=== PATIENT | female | born 1945 | race Caucasian/White ===

== ENCOUNTER 2018-08-29 09:55 | Inpatient (IN) | payer BC, OTHER ==
--- NOTE | 2018-08-29 10:33 | PDOC ---
History of Present Illness - General Chief Complaint: Altered Mental Status Stated Complaint: PAIN Time Seen by Provider: 08/29/18 10:22 History Source: Patient Exam Limitations: No Limitations Past History - Past Medical History Allergies/Adverse Reactions: Allergies Allergy/AdvReac Type Severity Reaction Status Date / Time No Known Allergies Allergy Verified 08/29/18 09:56 Home Medications: Ambulatory Orders Levothyroxine Sodium [Synthroid] 112 mcg PO DAILY tablet 01/07/14 COPD: No Thyroid Disease: Yes - Suicide/Smoking/Psychosocial Hx Smoking History: Never smoked *Physical Exam - Vital Signs Last Vital Signs Temp Pulse Resp BP Pulse Ox 98.3 F 76 20 136/73 97 08/29/18 10:03 08/29/18 10:03 08/29/18 10:03 08/29/18 10:03 08/29/18 10:03 Moderate Sedation - Procedure Monitoring Vital Signs: Procedure Monitoring Vital Signs Temperature 98.3 F 08/29/18 10:03 Pulse Rate 76 08/29/18 10:03 Respiratory Rate 20 08/29/18 10:03 Blood Pressure 136/73 08/29/18 10:03 O2 Sat by Pulse Oximetry (%) 97 08/29/18 10:03 *DC/Admit/Observation/Transfer - Referrals Referrals: Mehdi Barrow MD [Primary Care Provider] - - Patient Instructions - Post Discharge Activity
[2018-08-29 11:20] LABS: BASO % 0.3 % (0-2.0); EOS % 0.2 % (0-4.5); HEMATOCRIT 37.2 % (32.4-45.2); HEMOGLOBIN 13.1 GM/dL (10.7-15.3); LYMPH % 32.9 % (8-40); MCH 30.6 pg (25.7-33.7); MCHC 35.2 g/dl (32.0-36.0); MEAN CELL VOLUME 86.9 fl (80-96); MEAN PLT VOLUME 7.6 fl (7.5-11.1); MONO % 8.9 % (3.8-10.2); NEUT % 57.7 % (42.8-82.8); PLATELET COUNT 249 K/MM3 (134-434); RBC 4.28 M/mm3 (3.60-5.2); RDW 12.4 % (11.6-15.6)
--- NOTE | 2018-08-29 11:25 | PDOC ---
History of Present Illness <Elia Childers - Last Filed: 08/29/18 13:14> - General History Source: Patient, Family Exam Limitations: No Limitations - History of Present Illness Initial Comments: 08/29/18 11:25 73 year old female c/ hx of thyroid disorder presents with altered mental status. ~2 weeks ago, pt was /o cough. Saw Dr. Barrow (her PMD) and was worked up as an outpatient. Started on empiric amoxicillin and completed dose of antibiotics. Ultimately found out that this was some sort of "virus" Cough improved. However, pt's daughter started to note in the last days that she was becoming increasingly more confusion. Was however being recently treated for an ear infection. Currently, patient has no pain, but does seem confused. Does state she has a frontal headache and some neck discomfort. Had a fever yesterday but no fever today. No recent travels. Because of the confusion, pt came to the ED for an evaluation. <Gerard Mckenzie - Last Filed: 08/29/18 15:15> - General Chief Complaint: Altered Mental Status Stated Complaint: PAIN Time Seen by Provider: 08/29/18 10:22 Past History <Elia Childers - Last Filed: 08/29/18 13:14> - Past Medical History COPD: No Thyroid Disease: Yes - Suicide/Smoking/Psychosocial Hx Smoking History: Never smoked <Gerard Mckenzie - Last Filed: 08/29/18 15:15> - Past Medical History Allergies/Adverse Reactions: Allergies Allergy/AdvReac Type Severity Reaction Status Date / Time No Known Allergies Allergy Verified 08/29/18 09:56 Home Medications: Ambulatory Orders Levothyroxine Sodium [Synthroid] 112 mcg PO DAILY tablet 01/07/14 Review of Systems - Review of Systems Comments:: 08/29/18 13:14 GENERAL/CONSTITUTIONAL: (+) Confusion. (+) Fever (Resolved). No chills. No weakness. HEAD, EYES, EARS, NOSE AND THROAT: No change in vision. No ear pain or discharge. No sore throat. CARDIOVASCULAR: No chest pain or shortness of breath. RESPIRATORY: No cough, wheezing, or hemoptysis. GASTROINTESTINAL: No nausea, vomiting, diarrhea or constipation. GENITOURINARY: No dysuria, frequency, or change in urination. MUSCULOSKELETAL: (+) Mild neck discomfort. No joint or muscle swelling or pain. No back pain. SKIN: No rash NEUROLOGIC: (+) Frontal headache. No vertigo, loss of consciousness, or change in strength/sensation. ENDOCRINE: No increased thirst. No abnormal weight change. HEMATOLOGIC/LYMPHATIC: No anemia, easy bleeding, or history of blood clots. ALLERGIC/IMMUNOLOGIC: No hives or skin allergy. <Elia Childers - Last Filed: 08/29/18 13:14> *Physical Exam - Vital Signs Last Vital Signs Temp Pulse Resp BP Pulse Ox 98.3 F 76 20 136/73 97 08/29/18 10:03 08/29/18 10:03 08/29/18 10:03 08/29/18 10:03 08/29/18 10:03 - Physical Exam Comments: 08/29/18 13:14 GENERAL: Alert and oriented x 3. (+) Appears generally confused. HEAD: No signs of trauma EYES: PERRLA, EOMI, sclera anicteric, conjunctiva clear ENT: Auricles normal inspection, hearing grossly normal, nares patent, oropharynx clear without exudates. Moist mucosa NECK: Normal ROM, supple, no lymphadenopathy, JVD, or masses LUNGS: Breath sounds equal, clear to auscultation bilaterally. No wheezes, and no crackles HEART: Regular rate and rhythm, normal S1 and S2, no murmurs, rubs or gallops ABDOMEN: Soft, nontender, normoactive bowel sounds. No guarding, no rebound. No masses EXTREMITIES: Normal range of motion, no edema. No clubbing or cyanosis. No cords, erythema, or tenderness NEUROLOGICAL: Cranial nerves II through XII grossly intact. Normal speech. SKIN: Warm, Dry, normal turgor, no rashes or lesions noted. <Elia Childers - Last Filed: 08/29/18 13:14> - Vital Signs Last Vital Signs Temp Pulse Resp BP Pulse Ox 98.3 F 76 20 136/73 97 08/29/18 10:03 08/29/18 10:03 08/29/18 10:03 08/29/18 10:03 08/29/18 10:03 <Gerard Mckenzie - Last Filed: 08/29/18 15:15> Moderate Sedation - Procedure Monitoring Vital Signs: Procedure Monitoring Vital Signs Temperature 98.3 F 08/29/18 10:03 Pulse Rate 76 08/29/18 10:03 Respiratory Rate 20 08/29/18 10:03 Blood Pressure 136/73 08/29/18 10:03 O2 Sat by Pulse Oximetry (%) 97 08/29/18 10:03 <Elia Childers - Last Filed: 08/29/18 13:14> - Procedure Monitoring Vital Signs: Procedure Monitoring Vital Signs Temperature 98.3 F 08/29/18 10:03 Pulse Rate 76 08/29/18 10:03 Respiratory Rate 20 08/29/18 10:03 Blood Pressure 136/73 08/29/18 10:03 O2 Sat by Pulse Oximetry (%) 97 08/29/18 10:03 <Gerard Mckenzie - Last Filed: 08/29/18 15:15> Heart Score/ECG Review #1 ECG reviewed & interpreted by me at: 11:00 08/29/18 11:25 NSR 59, no std/deirdre, normal axis, normal intervals, T wave flat aVF, QTC 433 msec <Gerard Mckenzie - Last Filed: 08/29/18 15:15> ED Treatment Course - LABORATORY CBC & Chemistry Diagram: 08/29/18 11:04 08/29/18 10:48 - ADDITIONAL ORDERS Additional order review: Laboratory Results 08/29/18 08/29/18 08/29/18 11:34 11:13 11:04 PT with INR 11.20 INR 0.95 PTT (Actin FS) 24.6 L Sodium Potassium Chloride Carbon Dioxide Anion Gap BUN Creatinine Creat Clearance w eGFR Random Glucose Lactic Acid 1.5 Calcium Phosphorus Magnesium Total Bilirubin AST ALT Alkaline Phosphatase Troponin I Total Protein Albumin TSH Urine Color Ltyellow Urine Appearance Clear Urine pH 7.0 Ur Specific [place] 1.006 L Urine Protein Negative Urine Glucose (UA) Negative Urine Ketones Negative Urine Blood Negative Urine Nitrite Negative Urine Bilirubin Negative Urine Urobilinogen Negative Ur Leukocyte Esterase Negative 08/29/18 10:48 PT with INR INR PTT (Actin FS) Sodium 139 Potassium 3.4 L Chloride 104 Carbon Dioxide 26 Anion Gap 9 BUN 7 Creatinine 0.6 Creat Clearance w eGFR > 60 Random Glucose 100 Lactic Acid Calcium 8.8 Phosphorus 1.9 L Magnesium 2.2 Total Bilirubin 0.5 AST 24 ALT 37 Alkaline Phosphatase 65 Troponin I < 0.02 Total Protein 6.2 L Albumin 3.6 TSH 0.44 Urine Color Urine Appearance Urine pH Ur Specific [place] Urine Protein Urine Glucose (UA) Urine Ketones Urine Blood Urine Nitrite Urine Bilirubin Urine Urobilinogen Ur Leukocyte Esterase 08/29/18 11:04 RBC 4.28 MCV 86.9 MCHC 35.2 RDW 12.4 MPV 7.6 Neutrophils % 57.7 Lymphocytes % 32.9 Monocytes % 8.9 Eosinophils % 0.2 Basophils % 0.3 <Elia Childers - Last Filed: 08/29/18 13:14> - LABORATORY CBC & Chemistry Diagram: 08/29/18 11:04 08/29/18 10:48 - RADIOLOGY Radiology Studies Ordered: Category Date Time Status HEAD CT WITHOUT CONTRAST [CT] Stat CT Scan 08/29/18 10:48 Ordered CHEST X-RAY PORTABLE* [RAD] Stat Radiology 08/29/18 10:48 Taken <Gerard Mckenzie - Last Filed: 08/29/18 15:15> Medical Decision Making - Medical Decision Making 08/29/18 12:24 A portion of this note was documented by scribe services under my direction. I have reviewed the details of the note, within reason, and agree with the documentation with the following case summary and management plan written by me. Patient treated in the ED. Nursing notes are reviewed and incorporated into the medical decision-making. Vital signs reviewed. Peripheral IV access obtained by the nurse, laboratory studies are drawn and sent, reviewed and interpreted by myself. Vital Signs Temp Pulse Resp BP Pulse Ox 98.3 F 76 20 136/73 97 08/29/18 10:03 08/29/18 10:03 08/29/18 10:03 08/29/18 10:03 08/29/18 10:03 73 year old female presents with confusion. The patient appears to be delirious but alert. As per pt's daughter, pt is typically very alert and highly functional and still works at a job, but seems more confused than usual. I have spoken with pt's PMD, Dr. Barrow. Pt had outpatient labs performed and had WBC ~2.5. Was thought that could've been potentially viral. Labs reviewed with no acute findings. However, I am concerned for delirium secondary to possible viral meningitis. I agree with plan to do head CT and will talk with daughter and patient about performing a lumbar puncture. Pt and pt's daughter seems hesitatant and will get back to us. Will ultimately need to admit the patient to the hospital. 08/29/18 15:14 CBC, BMP 08/29/18 11:04 08/29/18 10:48 CMP Sodium 139 mmol/L (136-145) 08/29/18 10:48 Potassium 3.4 mmol/L (3.5-5.1) L 08/29/18 10:48 Chloride 104 mmol/L (98-107) 08/29/18 10:48 Carbon Dioxide 26 mmol/L (21-32) 08/29/18 10:48 Anion Gap 9 MMOL/L (8-16) 08/29/18 10:48 BUN 7 mg/dL (7-18) 08/29/18 10:48 Creatinine 0.6 mg/dL (0.55-1.3) 08/29/18 10:48 Creat Clearance w eGFR > 60 (>60) 08/29/18 10:48 Random Glucose 100 mg/dL (74-106) 08/29/18 10:48 Lactic Acid 1.5 mmol/L (0.4-2.0) 08/29/18 11:04 Calcium 8.8 mg/dL (8.5-10.1) 08/29/18 10:48 Phosphorus 1.9 mg/dL (2.5-4.9) L 08/29/18 10:48 Magnesium 2.2 mg/dL (1.8-2.4) 08/29/18 10:48 Total Bilirubin 0.5 mg/dL (0.2-1) 08/29/18 10:48 AST 24 U/L (15-37) 08/29/18 10:48 ALT 37 U/L (13-61) 08/29/18 10:48 Alkaline Phosphatase 65 U/L (45-117) 08/29/18 10:48 Troponin I < 0.02 ng/ml (0.00-0.05) 08/29/18 10:48 Total Protein 6.2 g/dl (6.4-8.2) L 08/29/18 10:48 Albumin 3.6 g/dl (3.4-5.0) 08/29/18 10:48 TSH 0.44 uIU/ml (0.358-3.74) 08/29/18 10:48 Urine Test Results Urine Color Ltyellow 08/29/18 11:34 Urine Appearance Clear 08/29/18 11:34 Urine pH 7.0 (5.0-8.0) 08/29/18 11:34 Ur Specific [place] 1.006 (1.010-1.035) L 08/29/18 11:34 Urine Protein Negative (NEGATIVE) 08/29/18 11:34 Urine Glucose (UA) Negative (NEGATIVE) 08/29/18 11:34 Urine Ketones Negative (NEGATIVE) 08/29/18 11:34 Urine Blood Negative (NEGATIVE) 08/29/18 11:34 Urine Nitrite Negative (NEGATIVE) 08/29/18 11:34 Urine Bilirubin Negative (<2.0 mg/dL) 08/29/18 11:34 Ur Leukocyte Esterase Negative (NEGATIVE) 08/29/18 11:34 Labs unremarkable. Pt and pt's daughter consents for lumbar puncture. Lumbar puncture attempted under sterile conditions by me and Dr. Don. Unsuccessful attempt. Pt will likely need IR guided lumbar puncture. Case discussed with Dr. Hollis. Initiate IV acyclor and IV antibiotics (vanc/ceftriaxone). Case discussed with DR. Leavitt who accepts pt to med/surg admission. <Gerard Mckenzie - Last Filed: 08/29/18 15:15> *DC/Admit/Observation/Transfer - Attestations Scribe Attestion: 08/29/18 13:15 Documentation prepared by Elia Childers, acting as medical data analyst for Gerard Mckenzie MD. <Elia Childers - Last Filed: 08/29/18 13:14> <Gerard Mckenzie - Last Filed: 08/29/18 15:15> Diagnosis at time of Disposition: Altered mental status - Referrals Referrals: Mehdi Barrow MD [Primary Care Provider] - - Patient Instructions - Post Discharge Activity
--- NOTE | 2018-08-29 11:32 | PDOC ---
*Physical Exam - Vital Signs Last Vital Signs Temp Pulse Resp BP Pulse Ox 98.3 F 76 20 136/73 97 08/29/18 10:03 08/29/18 10:03 08/29/18 10:03 08/29/18 10:03 08/29/18 10:03 - Physical Exam Comments: 73 yo F with a hx of hypothyroidism presents to the emergency department with AMS. Per the patient, had URI 2 weeks ago and given amoxicillin by PMD. Over the past 2 days, she became increasingly confused per the daughter. Per the patient, she had a fever yesterday. General Appearance: Yes: Nourished, Appropriately Dressed. No: Apparent Distress, Intoxicated HEENT: positive: EOMI, DASHAWN, Normal ENT Inspection, Normal Voice, Symmetrical, TMs Normal, Pharynx Normal, Hearing Grossly Normal. negative: Pale Conjunctivae , Scleral Icterus (R), Scleral Icterus (L), Muffled/Hoarse voice, Pharyngeal Erythema, Tonsillar Exudate, Tonsillar Erythema, Nasal Congestion, Rhinorrhea, Excessive drooling Neck: positive: Trachea midline, Supple. negative: Tender, Lymphadenopathy (R) , Lymphadenopathy (L), Tender lateral, Tender midline Respiratory/Chest: positive: Lungs Clear, Normal Breath Sounds. negative: Chest Tender, Respiratory Distress, Accessory Muscle Use, Crackles, Rales, Rhonchi, Stridor Cardiovascular: positive: Regular Rhythm, Regular Rate, S1, S2. negative: Systolic Murmur Gastrointestinal/Abdominal: positive: Normal Bowel Sounds. negative: Tender Lymphatic: negative: Adenopathy Musculoskeletal: positive: Normal Inspection. negative: CVA Tenderness, Vertebral Tenderness Extremity: positive: Normal Capillary Refill, Normal Inspection, Normal Range of Motion. negative: Tender, Swelling, Calf Tenderness Integumentary: positive: Normal Color, Dry, Warm Neurologic: positive: technical documentation specialist II-XII NML intact, Fully Oriented, Alert, Normal Mood/ Affect, Normal Response, Motor Strength 5/5, Other (GENERAL CONFUSION) ED Treatment Course - LABORATORY CBC & Chemistry Diagram: 08/30/18 06:30 08/30/18 06:30 - ADDITIONAL ORDERS Additional order review: 08/29/18 11:04 RBC 4.28 MCV 86.9 MCHC 35.2 RDW 12.4 MPV 7.6 Neutrophils % 57.7 Lymphocytes % 32.9 Monocytes % 8.9 Eosinophils % 0.2 Basophils % 0.3 Medical Decision Making - Medical Decision Making head ct shows no acute process. cxr negative for acute process. Laboratory Tests 08/29/18 08/29/18 08/29/18 10:48 11:04 11:04 WBC 4.0 RBC 4.28 Hgb 13.1 Hct 37.2 MCV 86.9 MCH 30.6 MCHC 35.2 RDW 12.4 Plt Count 249 MPV 7.6 Absolute Neuts (auto) 2.3 Neutrophils % 57.7 Lymphocytes % 32.9 Monocytes % 8.9 Eosinophils % 0.2 Basophils % 0.3 Nucleated RBC % 0 PT with INR INR PTT (Actin FS) Sodium 139 Potassium 3.4 L Chloride 104 Carbon Dioxide 26 Anion Gap 9 BUN 7 Creatinine 0.6 Creat Clearance w eGFR > 60 Random Glucose 100 Lactic Acid Calcium 8.8 Phosphorus 1.9 L Magnesium 2.2 Total Bilirubin 0.5 AST 24 ALT 37 Alkaline Phosphatase 65 Troponin I < 0.02 Total Protein 6.2 L Albumin 3.6 TSH 0.44 Urine Color Urine Appearance Urine pH Ur Specific [place] Urine Protein Urine Glucose (UA) Urine Ketones Urine Blood Urine Nitrite Urine Bilirubin Urine Urobilinogen Ur Leukocyte Esterase Influenza A (Rapid) Negative Influenza B (Rapid) Negative 08/29/18 08/29/18 08/29/18 11:04 11:13 11:34 WBC RBC Hgb Hct MCV MCH MCHC RDW Plt Count MPV Absolute Neuts (auto) Neutrophils % Lymphocytes % Monocytes % Eosinophils % Basophils % Nucleated RBC % PT with INR 11.20 INR 0.95 PTT (Actin FS) 24.6 L Sodium Potassium Chloride Carbon Dioxide Anion Gap BUN Creatinine Creat Clearance w eGFR Random Glucose Lactic Acid 1.5 Calcium Phosphorus Magnesium Total Bilirubin AST ALT Alkaline Phosphatase Troponin I Total Protein Albumin TSH Urine Color Ltyellow Urine Appearance Clear Urine pH 7.0 Ur Specific [place] 1.006 L Urine Protein Negative Urine Glucose (UA) Negative Urine Ketones Negative Urine Blood Negative Urine Nitrite Negative Urine Bilirubin Negative Urine Urobilinogen Negative Ur Leukocyte Esterase Negative Influenza A (Rapid) Influenza B (Rapid) labs within normal limits. patient continues to have AMS. refer to Lumbar puncture note on procedure. unable to collect CSF samples. Spoke to Dr. Suárez who states he will start the patient on antiviral and abx for meningitis coverage until the LP is done. Will admit patient for AMS. Dr. Leavitt aware of the patient. Dispo; admit *DC/Admit/Observation/Transfer Diagnosis at time of Disposition: Altered mental status Qualifiers: Altered mental status type: unspecified Qualified Code(s): R41.82 - Altered mental status, unspecified - Referrals - Patient Instructions - Post Discharge Activity Lumbar Puncture Indication: AMS Risks and Benefits Explained: Yes Consent on Chart: Yes Sterile Technique: Yes Skin prep: Betadine Position: Left lateral decubitus Site: L4-L51 Local Anesthesia: 1% Lidocaine with epi Sterile Dressing Applied: Yes Remarks: unable to acquire CSF. needle unable to penetrate into space. likely due to degenerative joint disease narrowing disc space. will refer to IR for procedure to be done under imaging guidance.
[2018-08-29 11:58] LABS: ALBUMIN 3.6 g/dl (3.4-5.0); ALK PHOS 65 U/L (45-117); ANION GAP 9 MMOL/L (8-16); BILIRUBIN,TOTAL 0.5 mg/dL (0.2-1); BLOOD UREA NITROGEN 7 mg/dL (7-18); CALCIUM 8.8 mg/dL (8.5-10.1); CHLORIDE 104 mmol/L (98-107); CO2 26 mmol/L (21-32); CREATININE 0.6 mg/dL (0.55-1.3); GLUCOSE,RANDOM 100 mg/dL (74-106); MAGNESIUM 2.2 mg/dL (1.8-2.4); PHOSPHOROUS 1.9 mg/dL (2.5-4.9); POTASSIUM 3.4 mmol/L (3.5-5.1); SGOT/AST 24 U/L (15-37); SGPT/ALT 37 U/L (13-61); SODIUM 139 mmol/L (136-145); TOT PROT 6.2 g/dl (6.4-8.2)
[2018-08-29 12:13] LABS: URINE APPEARANCE CLEAR; URINE BILIRUBIN NEGATIVE (<2.0 mg/dL); URINE COLOR LTYELLOW; URINE GLUCOSE (UA) NEGATIVE (NEGATIVE); URINE KETONE NEGATIVE (NEGATIVE); URINE LEUK ESTERASE NEGATIVE (NEGATIVE); URINE NITRITE NEGATIVE (NEGATIVE); URINE PROTEIN NEGATIVE (NEGATIVE); URINE UROBILINOGEN NEGATIVE mg/dL (0.2-1.0)
[2018-08-29 12:47] LABS: INR 0.95 (0.83-1.09); PROTHROMBIN TIME (PATIENT) 11.2 SEC (9.7-13.0)
[2018-08-29 12:50] LABS: ACTIVATED PTT 24.6 SECONDS (25.2-36.5)
[2018-08-29] MEDS ORDERED: LIDOCAINE HCL 1%, 10 MG/ML (20ML VIAL) ONE (14:44)
[2018-08-29] MEDS ORDERED: ACETAMINOPHEN 1000 MG/100 ML VIAL (NON FORMULARY) IVPB ONE (15:12)
[2018-08-29] MEDS ORDERED: SODIUM CHLORIDE 1,000 ML IV STA (15:12)
[2018-08-29] MEDS ORDERED: POTASSIUM CHLORIDE TABS 20 MEQ TABLET.ER (FP) PO ONE (15:13)
--- NOTE | 2018-08-29 15:17 | HP ---
Admitting History and Physical - Primary Care Physician PCP: Mehdi Barrow - Admission Chief Complaint: came in for headache History of Present Illness: 73 yr old female h/o thyroid surgery came in for headache feeling tired and neck pain patient completed course of abx amoxicillin about two weeks ago for cough, patient had labs done at PMD and wbc 2.5 no fever, no chills no nausea no vomitting in ER Lumbar puncture was attempted but unsuccessful neurology on board iv abx History Source: Patient, Medical Record - Past Surgical History Additional Past Surgical History: thyroid surgery - Smoking History Smoking history: Never smoked Home Medications - Allergies Allergies/Adverse Reactions: Allergies Allergy/AdvReac Type Severity Reaction Status Date / Time No Known Allergies Allergy Verified 08/29/18 09:56 - Home Medications Home Medications: Ambulatory Orders Levothyroxine Sodium [Synthroid] 112 mcg PO DAILY tablet 01/07/14 Review of Systems - Review of Systems Constitutional: reports: Other (headache and neck pain feelingtired) Physical Examination Vital Signs: Vital Signs Temperature 98.3 F 08/29/18 10:03 Pulse Rate 76 08/29/18 10:03 Respiratory Rate 20 08/29/18 10:03 Blood Pressure 136/73 08/29/18 10:03 O2 Sat by Pulse Oximetry (%) 97 08/29/18 10:03 Constitutional: Yes: Calm Cardiovascular: Yes: Regular Rate and Rhythm, S1, S2 Respiratory: Yes: CTA Bilaterally Gastrointestinal: Yes: Normal Bowel Sounds, Soft Neurological: Yes: Alert, Oriented (to name) Labs: CBC, BMP 08/29/18 11:04 08/29/18 10:48 Imaging - Results Cat Scan: Report Reviewed Problem List - Problems (1) Altered mental status Assessment/Plan: med surg cultures neurology consult IR guided Lumbar puncture ID eval broad abx vanco and rocephin iv acyclovir dvt ppx neurochecks Code(s): R41.82 - ALTERED MENTAL STATUS, UNSPECIFIED Qualifiers: Altered mental status type: unspecified Qualified Code(s): R41.82 - Altered mental status, unspecified (2) Hypothyroid Assessment/Plan: tsh synthroid Code(s): E03.9 - HYPOTHYROIDISM, UNSPECIFIED (3) Electrolyte abnormality Assessment/Plan: replete phosphorous and potassium Code(s): E87.8 - OTH DISORDERS OF ELECTROLYTE AND FLUID BALANCE, NEC
[2018-08-29] MEDS ORDERED: ACYCLOVIR 500 MG (50MG/ML) VIAL IVPUSH ONE (16:18)
[2018-08-29] MEDS ORDERED: CEFTRIAXONE 1 GM/50 ML BAG ONE (16:20)
[2018-08-29] MEDS ORDERED: ACETAMINOPHEN INJECTION 100 ML IVPB ONE (16:20)
[2018-08-29] MEDS ORDERED: VANCOMYCIN 1 GRAM (PRE-DOCKED) 1,000 MG/250 ML BAG IVPB ONE (16:30)
[2018-08-29] MEDS ORDERED: ACYCLOVIR INJECTION 700 MG in DEXTROSE 5%-WATER - 100 ML IVPB ONE (16:45)
[2018-08-29] MEDS ORDERED: CEFTRIAXONE 1 GM in DEXTROSE 5%-WATER - 50 ML IVPB ONE (16:45)
[2018-08-29] MEDS ORDERED: NAPH,MB-DB/K PH,MBDB POWDER PACKET PO ONE (16:45)
--- NOTE | 2018-08-29 17:09 | PN ---
Progress Note (short form) - Note Progress Note: ID CONSULT DICTATED
[2018-08-29] MEDS ORDERED: VANCOMYCIN 1 GRAM (PRE-DOCKED) 1,000 MG/250 ML BAG IVPB SCH (18:00)
[2018-08-29] MEDS: CEFTRIAXONE 2 GM in DEXTROSE 5%-WATER 100 ML IVPB SCH ×3 (18:00→22:44)
--- NOTE | 2018-08-29 18:13 | CONS ---
DATE OF CONSULTATION: DATE OF DICTATION: 08/29/2018 HISTORY: The patient is a 73-year-old female evaluated for possible meningitis. History was obtained from the chart as well as the patient's daughter who was present at the time of the examination. She was doing well until approximately 2 weeks prior to admission. She had developed an upper respiratory tract infection characterized by cough. She saw her primary care doctor as an outpatient and was prescribed amoxicillin. Her cough resolved, and she initially improved; however, over the past 2-3 days, the daughter reports that she has become increasingly confused. 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 She was increasingly confused and forgetful. She was brought to the emergency room where a CAT scan of the head was performed and was negative for acute infarct or bleed. Daughter was concerned that her mother might have been having a stroke. In the emergency room, she was noticeably confused. She complained of a frontal headache and some neck pain. A lumbar puncture was attempted, however, unsuccessful. At the present time, she is awake; however, she appears confused. She is in no acute distress and is not acutely toxic appearing. No reports of fever or chills. No chest pain, shortness of breath, vomiting, or diarrhea. No rash has been reported. Daughter states that she may have been in contact with persons with respiratory therapy illnesses at work. She has had no recent hospitalization. No recent travel. No known insect or animal bites or scratches. PAST MEDICAL HISTORY: Positive for thyroid disease. ALLERGIES: No known allergies. MEDICATIONS: Synthroid. SOCIAL HISTORY: She works in an office doing office work. Nonsmoker, nondrinker. No history of illicit drugs. SYSTEMS REVIEW: Neurologic: As per HPI. Cardiac: Negative chest pain or palpitations. Respiratory: Negative cough or sputum production. Gastrointestinal: Negative vomiting or diarrhea. Genitourinary: Negative for urinary tract infection. LABORATORY DATA: White count 4 with 57 neutrophils, 32 lymphocytes, 8 monocytes, hematocrit 37.2, platelets 249. Influenza swab negative. Urinalysis negative. Blood and urine cultures pending. Chest x-ray negative for acute infiltrate. PHYSICAL EXAMINATION: General: She is awake. She is seated on the stretcher in the emergency room. Vital Signs: Temperature 98.3, blood pressure 136/73, pulse 76 and regular, respirations 20 per minute. HEENT: Sclerae anicteric. Oropharynx slightly injected. No exudate. Tympanic membranes clear bilaterally. Neck: Supple. No nuchal rigidity or tenderness to flexion. Heart: Sounds S1, S2. Lungs: Clear bilaterally. Abdomen: Soft. No tenderness elicited. No mass, rebound, or rigidity. Extremities: Positive for edema. Negative Homans sign. No rash is noted. IMPRESSION: 1. Altered mental status, rule out toxic metabolic encephalopathy. 2. Rule out central nervous system infection. 3. Recent respiratory tract illness. PLAN: Suspect viral syndrome with possible viral encephalitis in light of recent respiratory tract illness and reports of leukopenia prior to admission. Agree with lumbar puncture. Will empirically treat for meningitis with ceftriaxone 2 g IV piggyback every 12 hours, vancomycin 1 g IV piggyback every 12 hours, acyclovir 10 mg/kg IV piggyback every 8 hours. Neurology evaluation. Case discussed with primary care doctor as well as the daughter, who is present at the time of the examination. I will follow. Thank you for the kind referral. AL VEGA M.D. [id number]
[2018-08-29] MEDS: ACYCLOVIR INJECTION 700 MG in DEXTROSE 5%-WATER - 100 ML IVPB SCH (18:25)
--- NOTE | 2018-08-29 18:25 | CON.NEURO ---
Consult - Smoking History Smoking history: Never smoked Home Medications - Allergies Allergies/Adverse Reactions: Allergies Allergy/AdvReac Type Severity Reaction Status Date / Time No Known Allergies Allergy Verified 08/29/18 09:56 - Home Medications Home Medications: Ambulatory Orders Levothyroxine Sodium [Synthroid] 112 mcg PO DAILY tablet 01/07/14 Physical Exam-Neuro Vital Signs: Vital Signs Temperature 98.3 F 08/29/18 10:03 Pulse Rate 76 08/29/18 10:03 Respiratory Rate 20 08/29/18 10:03 Blood Pressure 136/73 08/29/18 10:03 O2 Sat by Pulse Oximetry (%) 97 08/29/18 10:03 Labs: CBC, BMP 08/29/18 11:04 08/29/18 10:48 INR, PTT INR 0.95 (0.83-1.09) 08/29/18 11:13 Assessment/Plan CC Confusion and recent viral illness HPI 73 year old female , no significant medical illness except hypothyroidism. 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 She denies any cognitive difficulty, no alcohol abuse, no stroke or depression. She has suffered recent flu and was given steroid and amoxycillin. Patient was forgetting things. there was no agitation or seizure , or significant headache. She has not had any high grade fever. Ed try to do spinal tap and could not do and she was started on abx empirically. PMH as Above PSH: Thyroid surgery Social History work as office secretary, lives with son and denies toxic habits. - Allergies/Adverse Reactions: Allergies Allergy/AdvReac Type Severity Reaction Status Date / Time No Known Allergies Allergy Verified 08/29/18 09:56 Home Medications: Levothyroxine Sodium [Synthroid] 112 mcg PO DAILY tablet 01/07/14 FH,ROS reviewed in chart NEUROLOGICAL EXAMINATION afebrile, no acute distress Alert and oriented x 3, no neck stiffness, following command eomi, pupils reactive, no face asymmetry, moving all ext sensation is normal ct head was unremarkable csf could not be obtained Assessment: 73 year old female history of Hypothyrodism, given recent viral illness and acute confusional state, possible viral encephalitis / meningitis cant be rule out. Clinically suspician for meningitis / encephalitis is not very strong. other possibility ? tia /stroke Plan: suggest to do mri of brain continue abx and antiviral medication and csf BY IR Continue supportive care Thanking you so much Juan Hollis MD
--- NOTE | 2018-08-29 20:21 | PN ---
Progress Note (short form) - Note Progress Note: Advised by nurse to act on this patient because seen by neurologist and there is possible diagnosis of meningitis low probability all the chart reviewed and she is afibrile at this time. vs stable ap since the possibility of meningitis low chance according to neurologist plan continue same treatment will move this patient to isolation till patient has lumbar puncture Visit type - Emergency Visit Emergency Visit: No - New Patient This patient is new to me today: Yes Date on this admission: 08/29/18 - Critical Care Critical Care patient: No - Discharge Referral Referred to [facility] Med P.C[facility] No
[2018-08-29] MEDS ORDERED: DEXTROSE 5%-WATER 100 ML IVPB ONE (22:37)
[2018-08-29] MEDS: ACETAMINOPHEN 325 MG TABLET (FP) PO PRN (23:48)
[2018-08-30 00:51] VITALS: BMI 29.4
[2018-08-30] MEDS: ACYCLOVIR INJECTION 700 MG in DEXTROSE 5%-WATER - 100 ML IVPB SCH ×3 (02:17→17:36)
[2018-08-30] MEDS ORDERED: ACETAMINOPHEN 325 MG TABLET (FP) PO ONE (04:08)
[2018-08-30] MEDS: LEVOTHYROXINE NA 125 MCG TABLET (FP) PO SCH (06:37)
[2018-08-30 07:47] LABS: HEMATOCRIT 35.5 % (32.4-45.2); HEMOGLOBIN 12.2 GM/dL (10.7-15.3); MCH 30.1 pg (25.7-33.7); MCHC 34.4 g/dl (32.0-36.0); MEAN CELL VOLUME 87.3 fl (80-96); MEAN PLT VOLUME 7.6 fl (7.5-11.1); PLATELET COUNT 259 K/MM3 (134-434); RBC 4.07 M/mm3 (3.60-5.2); RDW 12.5 % (11.6-15.6)
[2018-08-30 08:01] LABS: ALBUMIN 3.1 g/dl (3.4-5.0); ALK PHOS 60 U/L (45-117); ANION GAP 7 MMOL/L (8-16); BILIRUBIN,TOTAL 0.4 mg/dL (0.2-1); BLOOD UREA NITROGEN 8 mg/dL (7-18); CALCIUM 8.1 mg/dL (8.5-10.1); CHLORIDE 107 mmol/L (98-107); CO2 25 mmol/L (21-32); CREATININE 0.8 mg/dL (0.55-1.3); GLUCOSE,RANDOM 105 mg/dL (74-106); MAGNESIUM 2.2 mg/dL (1.8-2.4); PHOSPHOROUS 3.2 mg/dL (2.5-4.9); POTASSIUM 3.6 mmol/L (3.5-5.1); SGOT/AST 21 U/L (15-37); SGPT/ALT 28 U/L (13-61); SODIUM 139 mmol/L (136-145); TOT PROT 5.6 g/dl (6.4-8.2)
--- NOTE | 2018-08-30 10:02 | PN ---
Progress Note, Physician History of Present Illness: AWAKE, ALERT ORIENTED X 3 ANSWERS APPROPRIATELY APPEARS TO BE BACK TO BASELINE MENTATION AFEBRILE C/S PRELIM NO GROWTH - Current Medication List Current Medications: Active Medications Acetaminophen (Tylenol -) 650 mg PO Q6HPO PRN PRN Reason: FEVER Last Admin: 08/29/18 23:48 Dose: 650 mg Ceftriaxone Sodium 2 gm/ (Dextrose) 100 mls @ 100 mls/hr IVPB BID ESTHER; Protocol Last Admin: 08/29/18 22:44 Dose: 100 mls/hr Acyclovir 700 mg/ Dextrose 114 mls @ 114 mls/hr IVPB Q8H-IV ESTHER Last Admin: 08/30/18 02:17 Dose: 114 mls/hr Vancomycin HCl (Vancomycin (Pre-Docked)) 1,000 mg in 250 mls @ 166.667 mls/hr IVPB BID@1100,2300 ESTHER; Protocol Levothyroxine Sodium (Synthroid -) 125 mcg PO DAILY@0600 ESTHER Last Admin: 08/30/18 06:37 Dose: 125 mcg - Objective Vital Signs: Vital Signs Temperature 99.3 F 08/30/18 06:00 Pulse Rate 74 08/30/18 06:00 Respiratory Rate 18 08/30/18 06:00 Blood Pressure 127/72 08/30/18 06:00 O2 Sat by Pulse Oximetry (%) 98 08/30/18 00:45 Constitutional: Yes: No Distress Eyes: Yes: Conjunctiva Clear Neck: Yes: Supple Cardiovascular: Yes: Regular Rate and Rhythm, S1, S2 Respiratory: Yes: CTA Bilaterally Gastrointestinal: Yes: Normal Bowel Sounds, Soft. No: Tenderness Edema: No Labs: CBC, BMP 08/30/18 06:30 08/30/18 06:30 INR, PTT INR 0.95 (0.83-1.09) 08/29/18 11:13 Assessment/Plan ALTERED MENTAL STATUS ? TOXIC METABOLIC ENCEPHALOPATHY IMPROVED NO CLINICAL EVIDENCE OF MENINGITS AFEBRILE C/S NO GROWTH FOR MRI D/C ANTIBIOTICS D/C ISOLATION CONTINUE ACV PENDING MRI
[2018-08-30] MEDS: ACETAMINOPHEN 325 MG TABLET (FP) PO PRN ×2 (10:15→23:46)
[2018-08-30] MEDS ORDERED: VANCOMYCIN 1 GRAM (PRE-DOCKED) 1,000 MG/250 ML BAG IVPB SCH (11:00)
[2018-08-30] MEDS ORDERED: PT OWN MED DRAWER 7, Y5N ONE (11:55)
[2018-08-30] MEDS: CEFTRIAXONE 2 GM in DEXTROSE 5%-WATER 100 ML IVPB SCH (11:57)
--- NOTE | 2018-08-30 12:40 | PN ---
Progress Note, Physician - Current Medication List Current Medications: Active Medications Acetaminophen (Tylenol -) 650 mg PO Q6HPO PRN PRN Reason: FEVER Last Admin: 08/30/18 10:15 Dose: 650 mg Acyclovir 700 mg/ Dextrose 114 mls @ 114 mls/hr IVPB Q8H-IV ESTHER Last Admin: 08/30/18 11:57 Dose: 114 mls/hr Levothyroxine Sodium (Synthroid -) 125 mcg PO DAILY@0600 ESTHER Last Admin: 08/30/18 06:37 Dose: 125 mcg - Objective Vital Signs: Vital Signs Temperature 97.4 F L 08/30/18 10:00 Pulse Rate 68 08/30/18 10:00 Respiratory Rate 18 08/30/18 10:00 Blood Pressure 135/71 08/30/18 10:00 O2 Sat by Pulse Oximetry (%) 98 08/30/18 00:45 Neck: Yes: Supple Cardiovascular: Yes: Regular Rate and Rhythm Respiratory: Yes: Regular, CTA Bilaterally Gastrointestinal: Yes: Normal Bowel Sounds, Soft. No: Tenderness Neurological: Yes: Alert, Oriented. No: Confusion, Facial Droop Labs: CBC, BMP 08/30/18 06:30 08/30/18 06:30 INR, PTT INR 0.95 (0.83-1.09) 08/29/18 11:13 Problem List - Problems (1) Altered mental status Assessment/Plan: cultures neurology consult NOTED IR guided Lumbar puncture--NOT DONE--D/W ID ID FOLLOW UP OFF broad abx vanco and rocephin iv acyclovir dvt ppx neurochecks Code(s): R41.82 - ALTERED MENTAL STATUS, UNSPECIFIED Qualifiers: Altered mental status type: unspecified Qualified Code(s): R41.82 - Altered mental status, unspecified (2) Hypothyroid Assessment/Plan: n: tsh synthroid ENDO Code(s): E03.9 - HYPOTHYROIDISM, UNSPECIFIED
--- NOTE | 2018-08-30 13:02 | PN ---
Progress Note (short form) - Note Progress Note: 73 year old female , no significant medical illness except hypothyroidism. 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 She denies any cognitive difficulty, no alcohol abuse, no stroke or depression. She has suffered recent flu and was given steroid and amoxycillin. Patient was forgetting things. there was no agitation or seizure , or significant headache. She has not had any high grade fever. Ed try to do spinal tap and could not do and she was started on abx empirically. Patient denies any headhace, remains febrile and no new complain. ID note appreciated and abx has been d/c and continue acyclovir. NEUROLOGICAL EXAMINATION afebrile, no acute distress Alert and oriented x 3, no neck stiffness, following command eomi, pupils reactive, no face asymmetry, moving all ext sensation is normal ct head was unremarkable csf could not be obtained Assessment: 73 year old female history of Hypothyrodism, given recent viral illness and acute confusional state, Clinical suspician for meningitis is quite low, concur with ID to stop abx and d/c isolation. Possible transient metabolic/ischecmic encphalopathy Plan: waiting for mri of brain continue acyclovir concur with ID to d/c Abx. Thanking you so much Juan Hollis MD
[2018-08-30] MEDS ORDERED: BISACODYL 5 MG TABLET.DR (FP) PO ONE ×2 (14:02→16:30)
--- NOTE | 2018-08-30 14:42 | EKG ---
Test Reason : Blood Pressure : / mmHG Vent. Rate : 059 BPM Atrial Rate : 059 BPM P-R Int : 148 ms QRS Dur : 088 ms QT Int : 438 ms P-R-T Axes : 004 007 024 degrees QTc Int : 433 ms SINUS BRADYCARDIA OTHERWISE NORMAL ECG NO PREVIOUS ECGS AVAILABLE Confirmed by Gerard Estrella MD ([id number]) on 08/30/2018 2:42:42 PM Referred By: Confirmed By:Gerard Estrella MD
[2018-08-30] MEDS ORDERED: POTASSIUM CHLORIDE TABS 20 MEQ TABLET.ER (FP) PO ONE (15:00)
--- NOTE | 2018-08-30 15:24 | CON.CARD ---
Consult Consult Specialty:: Cardiology Referred by:: Bonnie Reason for Consultation:: cp - History of Present Illness Chief Complaint: cp History of Present Illness: 73 yr old female h/o thyroid surgery admitted for headache and neck pain, CT negative, LP unsuccessful. Being treated with valcyclovir. She has been having nocturnal chest pain, relieved with sitting up. No associated symptoms. No orthopnea,pnd or edema. Exercise tolerance is good. Anoop negative. - History Source History Provided By: Patient, Medical Record - Past Medical History ...: No - Smoking History Smoking history: Unknown if ever smoked Home Medications - Allergies Allergies/Adverse Reactions: Allergies Allergy/AdvReac Type Severity Reaction Status Date / Time No Known Allergies Allergy Verified 08/29/18 09:56 - Home Medications Home Medications: Ambulatory Orders Levothyroxine Sodium [Synthroid] 112 mcg PO DAILY tablet 01/07/14 Vital Signs: Vital Signs Temperature 97.4 F L 08/30/18 10:00 Pulse Rate 68 08/30/18 10:00 Respiratory Rate 18 08/30/18 10:00 Blood Pressure 135/71 08/30/18 10:00 O2 Sat by Pulse Oximetry (%) 94 L 08/30/18 09:00 Constitutional: Yes: No Distress, Calm Eyes: Yes: Conjunctiva Clear, EOM Intact HENT: Yes: Atraumatic, Normocephalic Neck: Yes: Trachea Midline Respiratory: Yes: CTA Bilaterally Gastrointestinal: Yes: Normal Bowel Sounds, Soft Cardiovascular: Yes: Regular Rate and Rhythm JVD: No Carotid Bruit: No PMI: Non-Displaced Heart Sounds: Yes: S1, S2 Integumentary: Yes: WNL, Tenting Neurological: Yes: WNL, Alert, Oriented - Other Data Labs, Other Data: CBC, BMP 08/30/18 06:30 08/30/18 06:30 INR, PTT INR 0.95 (0.83-1.09) 08/29/18 11:13 Troponin, BNP 08/30/18 03:10 Troponin I < 0.02 Troponin, BNP 08/30/18 03:10 Troponin I < 0.02 Imaging - Results Chest X-ray: Report Reviewed Cat Scan: Report Reviewed EKG: Report Reviewed (nsr nssttw changes.) Assessment/Plan 73 yr old female h/o thyroid surgery admitted for headache and neck pain, CT negative, LP unsuccessful. Being treated with valcyclovir. She has been having nocturnal chest pain, relieved with sitting up. No associated symptoms. No orthopnea,pnd or edema. Exercise tolerance is good. Anoop negative. Her cp is atypical for ischemia. No ECG changes. Possibly GERD. Stable for outpatient workup. Will see as needed.
--- NOTE | 2018-08-30 20:05 | CONSULT ---
Consult Consult Specialty:: endocrine Referred by:: dr.annabi bronson Reason for Consultation:: hypothyroidism - History of Present Illness Chief Complaint: weak and confused History of Present Illness: 73 yr old female h/o hypothyroidism,sp lobectomy, thyroid surgery came in for headache feeling tired and neck pain.had recent urti which she was given augmentum 7 days, she also had rt ear infection which she also took prednisone. subsequently felt weak and off ballance,headache and neck pain and feverlow wbc count was noted on bw.she was advised to present to ed for evaluation.she denies rash,nausea or vomiting - Past Medical History ...: No - Smoking History Smoking history: Unknown if ever smoked Home Medications - Allergies Allergies/Adverse Reactions: Allergies Allergy/AdvReac Type Severity Reaction Status Date / Time No Known Allergies Allergy Verified 08/29/18 09:56 - Home Medications Home Medications: Ambulatory Orders Levothyroxine Sodium [Synthroid] 112 mcg PO DAILY tablet 01/07/14 Review of Systems - Review of Systems Constitutional: reports: Lethargy Eyes: reports: Blurred Vision HENT: reports: No Symptoms Neck: reports: Tenderness Cardiovascular: reports: Shortness of Breath Respiratory: reports: SOB on Exertion Gastrointestinal: reports: Bloating Genitourinary: reports: No Symptoms Musculoskeletal: reports: Joint Pain, Muscle Cramps Integumentary: reports: No Symptoms Neurological: reports: Headache Endocrine: reports: Unexplained Weight Gain Physical Exam Vital Signs: Vital Signs Temperature 97.8 F 08/30/18 18:40 Pulse Rate 68 08/30/18 18:40 Respiratory Rate 18 08/30/18 18:40 Blood Pressure 143/75 08/30/18 18:40 O2 Sat by Pulse Oximetry (%) 94 L 08/30/18 09:00 Constitutional: Yes: Calm Eyes: Yes: EOM Intact HENT: Yes: Normocephalic Neck: Yes: Trachea Midline Cardiovascular: Yes: Regular Rate and Rhythm Respiratory: Yes: CTA Bilaterally Gastrointestinal: Yes: Normal Bowel Sounds ...Rectal Exam: Yes: Deferred Renal/: Yes: WNL Breast(s): Yes: WNL Musculoskeletal: Yes: WNL Extremities: Yes: WNL Edema: No Neurological: Yes: Alert, Oriented Labs: CBC, BMP 08/30/18 06:30 08/30/18 06:30 Problem List - Problems (1) Altered mental status Code(s): R41.82 - ALTERED MENTAL STATUS, UNSPECIFIED Qualifiers: Altered mental status type: unspecified Qualified Code(s): R41.82 - Altered mental status, unspecified (2) Electrolyte abnormality Code(s): E87.8 - OTH DISORDERS OF ELECTROLYTE AND FLUID BALANCE, NEC (3) Hypothyroid Code(s): E03.9 - HYPOTHYROIDISM, UNSPECIFIED Assessment/Plan Current Active Problems Altered mental status (Acute) Electrolyte abnormality (Acute) Hypothyroid (Acute) Abnormal Lab Results 08/30/18 06:30 Anion Gap 7 L Calcium 8.1 L Total Protein 5.6 L Albumin 3.1 L Laboratory Results - last 24 hr 08/30/18 08/30/18 08/30/18 03:10 06:30 06:30 WBC 6.0 RBC 4.07 Hgb 12.2 Hct 35.5 MCV 87.3 MCH 30.1 MCHC 34.4 RDW 12.5 Plt Count 259 MPV 7.6 Sodium 139 Potassium 3.6 Chloride 107 Carbon Dioxide 25 Anion Gap 7 L BUN 8 Creatinine 0.8 Creat Clearance w eGFR > 60 Random Glucose 105 Calcium 8.1 L Phosphorus 3.2 Magnesium 2.2 Total Bilirubin 0.4 AST 21 ALT 28 Alkaline Phosphatase 60 Troponin I < 0.02 Total Protein 5.6 L Albumin 3.1 L Laboratory Tests 08/29/18 08/29/18 10:48 11:04 TSH 0.44 Influenza A (Rapid) Negative Influenza B (Rapid) Negative plan: synthroid 125mcg daily given alone follow up outpatient for tfts
[2018-08-31] MEDS: ACYCLOVIR INJECTION 700 MG in DEXTROSE 5%-WATER - 100 ML IVPB SCH ×3 (02:43→17:00)
[2018-08-31] MEDS: LEVOTHYROXINE NA 125 MCG TABLET (FP) PO SCH (06:12)
[2018-08-31 08:43] LABS: BASO % 0.3 % (0-2.0); EOS % 0.4 % (0-4.5); HEMATOCRIT 35.1 % (32.4-45.2); LYMPH % 14.9 % (8-40); MCHC 34.2 g/dl (32.0-36.0); MEAN CELL VOLUME 87.6 fl (80-96); MEAN PLT VOLUME 7.5 fl (7.5-11.1); MONO % 7.9 % (3.8-10.2); NEUT % 76.5 % (42.8-82.8); PLATELET COUNT 280 K/MM3 (134-434); RBC 4.01 M/mm3 (3.60-5.2); RDW 12.3 % (11.6-15.6); WHITE BLOOD COUNT 8.8 K/mm3 (4.0-10.0)
[2018-08-31] MEDS ORDERED: PT OWN MED DRAWER 7, Y5N ONE ×2 (08:59→16:17)
[2018-08-31 09:15] LABS: ALBUMIN 3.2 g/dl (3.4-5.0); ALK PHOS 63 U/L (45-117); ANION GAP 8 MMOL/L (8-16); BILIRUBIN,TOTAL 0.4 mg/dL (0.2-1); BLOOD UREA NITROGEN 11 mg/dL (7-18); CALCIUM 8.4 mg/dL (8.5-10.1); CHLORIDE 108 mmol/L (98-107); CO2 25 mmol/L (21-32); CREATININE 0.9 mg/dL (0.55-1.3); GLUCOSE,RANDOM 91 mg/dL (74-106); POTASSIUM 3.7 mmol/L (3.5-5.1); SGOT/AST 18 U/L (15-37); SGPT/ALT 25 U/L (13-61); SODIUM 140 mmol/L (136-145); TOT PROT 5.6 g/dl (6.4-8.2)
[2018-08-31] MEDS ORDERED: ALBUTEROL SO4 2.5/IPRATROPIUM 0.5 INH SOL 3 ML VIAL.NEB. NEB ONE (09:43)
--- NOTE | 2018-08-31 09:49 | PN ---
Progress Note, Physician History of Present Illness: C/O COUGH AND SOB - Current Medication List Current Medications: Active Medications Acetaminophen (Tylenol -) 650 mg PO Q6HPO PRN PRN Reason: FEVER Last Admin: 08/30/18 23:46 Dose: 650 mg Albuterol/Ipratropium (Duoneb -) 1 amp NEB RQID ESTHER Acyclovir 700 mg/ Dextrose 114 mls @ 114 mls/hr IVPB Q8H-IV ESTHER Last Admin: 08/31/18 09:03 Dose: 114 mls/hr Levothyroxine Sodium (Synthroid -) 125 mcg PO DAILY@0600 ESTHER Last Admin: 08/31/18 06:12 Dose: 125 mcg - Objective Vital Signs: Vital Signs Temperature 98.2 F 08/31/18 09:48 Pulse Rate 74 08/31/18 09:48 Respiratory Rate 20 08/31/18 09:48 Blood Pressure 121/79 08/31/18 09:48 O2 Sat by Pulse Oximetry (%) 96 08/30/18 21:00 Cardiovascular: Yes: S1, S2 Respiratory: Yes: Rales (AT BOTH BASES) Gastrointestinal: Yes: Normal Bowel Sounds, Soft Labs: CBC, BMP 08/31/18 07:15 08/31/18 07:15 INR, PTT INR 0.95 (0.83-1.09) 08/29/18 11:13 Problem List - Problems (1) Altered mental status Assessment/Plan: resolved cultures neurology consult NOTED IR guided Lumbar puncture--NOT DONE--D/W ID ID FOLLOW UP noted off iv abx--on acyclovir OFF broad abx vanco and rocephin dvt ppx neurochecks Code(s): R41.82 - ALTERED MENTAL STATUS, UNSPECIFIED Qualifiers: Altered mental status type: unspecified Qualified Code(s): R41.82 - Altered mental status, unspecified (2) Hypothyroid Assessment/Plan: n: tsh synthroid ENDO Code(s): E03.9 - HYPOTHYROIDISM, UNSPECIFIED (3) Cough Assessment/Plan: and sob cxr bnp Code(s): R05 - COUGH
[2018-08-31 10:47] LABS: N-TERMINAL BNP 669.6 pg/ml (5-450)
[2018-08-31] MEDS: ALBUTEROL SO4 2.5/IPRATROPIUM 0.5 INH SOL 3 ML VIAL.NEB. NEB SCH ×3 (11:10→21:20)
--- NOTE | 2018-08-31 11:14 | PN ---
Progress Note (short form) - Note Progress Note: 73 year old female , no significant medical illness except hypothyroidism. 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 She denies any cognitive difficulty at baseline , no alcohol abuse, no stroke or depression. She has suffered recent flu and was given steroid and amoxycillin. Patient was forgetting things. there was no agitation or seizure , or significant headache. She has not had any high grade fever. Ed try to do spinal tap and could not do and she was started on abx empirically, later abx were stopped as suspician for meningitis was not high. Patient is still con acyclovir , and she has been afebrile and wbc were noraml NEUROLOGICAL EXAMINATION afebrile, no acute distress Alert and oriented x 3, no neck stiffness, following command eomi, pupils reactive, no face asymmetry, moving all ext sensation is normal ct head was unremarkable MRI of brain unremarkable csf could not be obtained Assessment: 73 year old female history of Hypothyrodism, presented to ed with memory difficulty and ? confusional state suspect delirium secondry to intercurrent illness vs viral meningitis ( as she has flu like symptoms and couging) , Abx has been stopped and continue acyclovir . Mri of brain is ormal and brain imaging is normal. Plan: continue acyclovir Thanking you so much Juan Hollis MD
--- NOTE | 2018-08-31 14:17 | PN ---
Progress Note (short form) - Note Progress Note: PULMONARY CONSULTATION DICTATED 08/31/18 IMP ALTERED MENTAL STATUS RESOLVED LIKELY SECONDARY TO TOXIC METABOLIC ENCEPHALOPATHY COUGH LIKELY MILD HYPER-REACTIVE AIRWAY SECONDARY TO URI H/O THYROID SURGERY HYPOTHYROID PLAN INHALED BRONCHODILATORS INHALED STEROIDS ANTI-TUSSIVES CHEST CT DR CHRISTIAN Problem List - Problems (1) Altered mental status Code(s): R41.82 - ALTERED MENTAL STATUS, UNSPECIFIED Qualifiers: Altered mental status type: unspecified Qualified Code(s): R41.82 - Altered mental status, unspecified (2) Cough Code(s): R05 - COUGH (3) Hypothyroid Code(s): E03.9 - HYPOTHYROIDISM, UNSPECIFIED
--- NOTE | 2018-08-31 15:45 | CONS ---
PULMONARY CONSULTATION DATE OF CONSULTATION: 08/31/2018 REFERRING PHYSICIAN: Laney Nicole MD The patient is a 73-year-old white female with a past medical history of hypothyroidism status post thyroid surgery, nonsmoker, who was admitted to [facility] for neck pain and confusion. Apparently, the patient was doing well until approximately 2 weeks prior to this admission. At that time, she developed an upper respiratory tract infection associated with cough. Cough at the time was nonproductive. She went to see her primary care physician as an outpatient, prescribed amoxicillin. She completed the course, and her cough initially improved, and then, started recurring. Approximately 2-3 days prior to admission, the patient's daughter apparently noted that she was becoming increasingly confused as well as forgetful, which is new from the patient's normal status. In the ER, she underwent a CT of the head which was normal for acute infarct or bleed. A lumbar puncture was attempted, but was unsuccessful. Patient was admitted. She was evaluated by Dr. Cruz for infectious disease who felt that the patient had likely toxic metabolic encephalopathy due to viral infection. She was empirically placed on ceftriaxone as well as vancomycin as well as acyclovir. She was evaluated by Neurology who felt no acute pathology, felt there was no evidence of acute CVA. Of note is the past couple days, the patient has been complaining of cough which is nonproductive. She denies any shortness of breath, wheezing, chest pains, and palpitations. She is a nonsmoker. There is no history of occupational exposure to chemicals or fumes. PAST MEDICAL HISTORY: Again includes history of thyroid disease status post thyroid surgery. REVIEW OF SYSTEMS: Positive cough. No sputum. No hemoptysis. No fever. No chills. No weight loss. No night sweats. SOCIAL HISTORY: Nonsmoker. No occupational exposures. CURRENT MEDICATIONS: Include Tylenol, acyclovir, DuoNeb, MiraLAX, and Synthroid. PHYSICAL EXAMINATION: General: The patient is an elderly white female, awake, alert, in no acute distress. Vital Signs: She is afebrile. Blood pressure is 121/79, respiratory rate is 20, O2 saturation is 96% on room air. HEENT: Normocephalic, atraumatic. Neck: Supple. Heart: Regular. S1, S2. Chest: Crackles 1/3 up on the left. A few basilar crackles on the right. Abdomen: Soft. Bowel sounds are positive. Extremities: No cyanosis or edema. LABORATORY DATA: WBC is 8.8, hemoglobin 12.0, hematocrit 35.1, platelet count of 280,000. BUN 11, creatinine 0.9. BNP 669. Chest x-ray: No acute pathology. IMPRESSION: 1. Cough, possibly secondary to recent viral infection. 2. Altered mental status, likely secondary to toxic metabolic encephalopathy secondary to recent viral infection. 3. History of thyroid surgery. PLAN: Antibiotics as per Infectious Disease, inhaled bronchodilators, supplemental O2. Obtain chest CT to further evaluate pulmonary parenchyma in view of crackles noted on physical exam. RAMON CHRISTIAN M.D. ANGELA/[id number]
[2018-08-31] MEDS: POLYETHYLENE GLYCOL 3350 119 GM BTL PO SCH ×2 (16:13→21:32)
--- NOTE | 2018-08-31 16:45 | EKG ---
Test Reason : Blood Pressure : / mmHG Vent. Rate : 057 BPM Atrial Rate : 057 BPM P-R Int : 162 ms QRS Dur : 084 ms QT Int : 444 ms P-R-T Axes : 021 -08 010 degrees QTc Int : 432 ms SINUS BRADYCARDIA NONSPECIFIC ST ABNORMALITY ABNORMAL ECG WHEN COMPARED WITH ECG OF 29-AUG-2018 10:57, NO SIGNIFICANT CHANGE WAS FOUND Confirmed by Gerard Estrella MD ([id number]) on 08/31/2018 4:45:15 PM Referred By: Confirmed By:Gerard Estrella MD
[2018-08-31] MEDS: MOMETASONE FUROATE 220 MCG/IH INHALER IH SCH (18:20)
[2018-09-01] MEDS: ACYCLOVIR INJECTION 700 MG in DEXTROSE 5%-WATER - 100 ML IVPB SCH ×2 (02:57→09:34)
[2018-09-01] MEDS: LEVOTHYROXINE NA 125 MCG TABLET (FP) PO SCH (05:34)
[2018-09-01] MEDS: ALBUTEROL SO4 2.5/IPRATROPIUM 0.5 INH SOL 3 ML VIAL.NEB. NEB SCH ×3 (07:15→15:38)
[2018-09-01] MEDS: MOMETASONE FUROATE 220 MCG/IH INHALER IH SCH (09:34)
[2018-09-01] MEDS: POLYETHYLENE GLYCOL 3350 119 GM BTL PO SCH (09:34)
--- NOTE | 2018-09-01 09:44 | PN ---
Progress Note (short form) - Note Progress Note: 73 year old female , no significant medical illness except hypothyroidism. 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 She denies any cognitive difficulty at baseline , no alcohol abuse, no stroke or depression. She has suffered recent flu and was given steroid and amoxycillin. Patient was forgetting things. there was no agitation or seizure , or significant headache. She has not had any high grade fever. Ed try to do spinal tap and could not do and she was started on abx empirically, later abx were stopped as suspician for meningitis was not high. Patient is feeling better, and asking when she can go home. She was seen by alternative education teacher and waiting to get echo. NEUROLOGICAL EXAMINATION afebrile, no acute distress Alert and oriented x 3, no neck stiffness, following command eomi, pupils reactive, no face asymmetry, moving all ext sensation is normal ct head was unremarkable MRI of brain unremarkable csf could not be obtained Assessment: 73 year old female history of Hypothyrodism, presented to ed with memory difficulty and ? confusional state suspect delirium. Her neurological symptoms resolved, she denies any significant headache and oriented x 3. Continue acyclovir Thanking you so much Juan Hollis MD
[2018-09-01] MEDS ORDERED: guaiFENesin 200 MG/10 ML 10 ML UNIT-DOSE CUPS PO PRN (11:43)
--- NOTE | 2018-09-01 11:49 | PN ---
Progress Note, Physician Chief Complaint: patient seen and examined no distress wants to go home MRI brain no infarct - Current Medication List Current Medications: Active Medications Acetaminophen (Tylenol -) 650 mg PO Q6HPO PRN PRN Reason: FEVER Last Admin: 08/30/18 23:46 Dose: 650 mg Albuterol/Ipratropium (Duoneb -) 1 amp NEB RQID ON LICENSE OF [facility] Last Admin: 09/01/18 11:06 Dose: 1 amp Guaifenesin (Robitussin -) 10 ml PO Q6H PRN PRN Reason: COUGH Acyclovir 700 mg/ Dextrose 114 mls @ 114 mls/hr IVPB Q8H-IV [facility] Last Admin: 09/01/18 09:34 Dose: 114 mls/hr Levothyroxine Sodium (Synthroid -) 125 mcg PO DAILY@0600 ON LICENSE OF [facility] Last Admin: 09/01/18 05:34 Dose: 125 mcg Mometasone Furoate (Asmanex 220mcg -) 2 puff IH DAILY ON LICENSE OF [facility] Last Admin: 09/01/18 09:34 Dose: 2 puff Polyethylene Glycol (Miralax (For Daily Use) -) 17 gm PO BID ON LICENSE OF [facility] Last Admin: 09/01/18 09:34 Dose: 17 grams - Objective Vital Signs: Vital Signs Temperature 99.3 F 09/01/18 09:00 Pulse Rate 90 09/01/18 09:00 Respiratory Rate 20 09/01/18 09:00 Blood Pressure 138/59 L 09/01/18 09:00 O2 Sat by Pulse Oximetry (%) 95 08/31/18 21:00 Constitutional: Yes: Calm Cardiovascular: Yes: Regular Rate and Rhythm, S1, S2 Respiratory: Yes: CTA Bilaterally Gastrointestinal: Yes: Normal Bowel Sounds, Soft Edema: No Neurological: Yes: Alert, Oriented, Other (motor strrenght and no sensory deficit) Labs: CBC, BMP 08/31/18 07:15 08/31/18 07:15 INR, PTT INR 0.95 (0.83-1.09) 08/29/18 11:13 Problem List - Problems (1) Altered mental status Assessment/Plan: med surg cultures neurology on board, MRI brain done no infarct mild volume loss seen on MRI IR guided Lumbar puncture not done as yet ID eval noted on acyclovir broad abx vanco and rocephin given in ER then stopped iv acyclovir for now smita have ID assess number of days of iv abx dvt ppx neurochecks Microbiology 08/29/18 11:42 Urine - Urine Clean Catch Urine Culture - Final NO GROWTH OBTAINED 08/29/18 11:04 Blood - Peripheral Venous Blood Culture - Preliminary NO GROWTH OBTAINED AFTER 72 HOURS, INCUBATION TO CONTINUE FOR 2 DAYS. 08/29/18 10:45 Blood - Peripheral Venous Blood Culture - Preliminary NO GROWTH OBTAINED AFTER 72 HOURS, INCUBATION TO CONTINUE FOR 2 DAYS. Code(s): R41.82 - ALTERED MENTAL STATUS, UNSPECIFIED Qualifiers: Altered mental status type: unspecified Qualified Code(s): R41.82 - Altered mental status, unspecified (2) Hypothyroid Assessment/Plan: tsh o.44 synthroid same dose Code(s): E03.9 - HYPOTHYROIDISM, UNSPECIFIED (3) Electrolyte abnormality Assessment/Plan: replete phosphorous and potassium Code(s): E87.8 - OTH DISORDERS OF ELECTROLYTE AND FLUID BALANCE, NEC Assessment/Plan awaiting ID follow up regarding duration of antibiotics
--- NOTE | 2018-09-01 12:39 | PN ---
Progress Note, Physician History of Present Illness: pulmonary awake,alert,feeling better,less cough - Current Medication List Current Medications: Active Medications Acetaminophen (Tylenol -) 650 mg PO Q6HPO PRN PRN Reason: FEVER Last Admin: 08/30/18 23:46 Dose: 650 mg Albuterol/Ipratropium (Duoneb -) 1 amp NEB RQID [facility] Last Admin: 09/01/18 11:06 Dose: 1 amp Guaifenesin (Robitussin -) 10 ml PO Q6H PRN PRN Reason: COUGH Acyclovir 700 mg/ Dextrose 114 mls @ 114 mls/hr IVPB Q8H-IV [facility] Last Admin: 09/01/18 09:34 Dose: 114 mls/hr Levothyroxine Sodium (Synthroid -) 125 mcg PO DAILY@0600 [facility] Last Admin: 09/01/18 05:34 Dose: 125 mcg Mometasone Furoate (Asmanex 220mcg -) 2 puff IH DAILY [facility] Last Admin: 09/01/18 09:34 Dose: 2 puff Polyethylene Glycol (Miralax (For Daily Use) -) 17 gm PO BID [facility] Last Admin: 09/01/18 09:34 Dose: 17 grams - Objective Vital Signs: Vital Signs Temperature 99.3 F 09/01/18 09:00 Pulse Rate 90 09/01/18 09:00 Respiratory Rate 20 09/01/18 09:00 Blood Pressure 138/59 L 09/01/18 09:00 O2 Sat by Pulse Oximetry (%) 95 08/31/18 21:00 Constitutional: Yes: Well Nourished, Calm Eyes: Yes: WNL HENT: Yes: WNL Neck: Yes: WNL Cardiovascular: Yes: Regular Rate and Rhythm, S1, S2 Respiratory: Yes: Rales (bibasilar crackles) Gastrointestinal: Yes: Normal Bowel Sounds, Soft Extremities: Yes: WNL Edema: No Problem List - Problems (1) Altered mental status Code(s): R41.82 - ALTERED MENTAL STATUS, UNSPECIFIED Qualifiers: Altered mental status type: unspecified Qualified Code(s): R41.82 - Altered mental status, unspecified (2) Cough Code(s): R05 - COUGH (3) Hypothyroid Code(s): E03.9 - HYPOTHYROIDISM, UNSPECIFIED Assessment/Plan IMP ALTERED MENTAL STATUS RESOLVED LIKELY SECONDARY TO TOXIC METABOLIC ENCEPHALOPATHY COUGH LIKELY MILD HYPER-REACTIVE AIRWAY SECONDARY TO URI IMPROVING H/O THYROID SURGERY HYPOTHYROID PLAN INHALED BRONCHODILATORS INHALED STEROIDS ANTI-TUSSIVES DR CHRISTIAN Problem List - Problems (1) Altered mental status Code(s): R41.82 - ALTERED MENTAL STATUS, UNSPECIFIED Qualifiers: Altered mental status type: unspecified Qualified Code(s): R41.82 - Altered mental status, unspecified (2) Cough Code(s): R05 - COUGH (3) Hypothyroid Code(s): E03.9 - HYPOTHYROIDISM, UNSPECIFIED
--- NOTE | 2018-09-01 15:21 | ECHO ---
Name: ROSALIO MEADOWS Exam:Adult Echocardiogram Study Date: 09/01/2018 01:39 PM Age: 73 yrs Reason For Study: CHF Height: 62 in Weight: 161 lb BSA: 1.7 m2 MMode/2D Measurements & Calculations IVSd: 1.0 cm ACS: 1.9 cm LVIDd: 3.2 cm LVIDs: 2.9 cm LVPWd: 1.3 cm EDV(Teich): 42.5 ml LVOT diam: 1.9 cm ESV(Teich): 33.5 ml Doppler Measurements & Calculations MV E max bhavik: 59.2 cm/sec Med Peak E' Bhavik: 6.7 cm/sec MV A max bhavik: 108.0 cm/sec Med E/e': 8.8 MV E/A: 0.55 Lat Peak E' Bhavik: 11.4 cm/sec Lat E/e': 5.2 Procedure A complete two-dimensional transthoracic echocardiogram was performed (2D, M-mode, Doppler and color flow Doppler). Technically limited study. Left Ventricle The left ventricle is normal in size. Left ventricular systolic function is normal. Ejection Fraction = 65- 70%. Grade I diastolic dysfunction, (abnormal relaxation pattern). Ratio E/E'= 9. No regional wall mo tion abnormalities noted. Right Ventricle The right ventricle is normal size. The right ventricular systolic function is normal. Atria The left atrial size is normal. Right atrial size is normal. Mitral Valve The mitral valve is normal in structure and function. There is no mitral regurgitation noted. Tricuspid Valve The tricuspid valve is normal in structure and function. There is mild tricuspid regurgitation. Aortic Valve The aortic valve is normal in structure and function. No aortic regurgitation is present. Pulmonic Valve The pulmonic valve is not well visualized. Great Vessels The aortic root is normal size. Pericardium/Pleura There is no pericardial effusion. Interpretation Summary Technically limited study The left ventricle is normal in size. Left ventricular systolic function is normal. No regional wall motion abnormalities noted. Ejection Fraction = 65-70%. Grade I diastolic dysfunction, (abnormal relaxation pattern). Ratio E/E'= 9 The right ventricular systolic function is normal. The left atrial size is normal. Right atrial size is normal. There is mild tricuspid regurgitation. There is no pericardial effusion. Previous study is not available for comparison Duran Blackburn MD 09/01/2018 03:20 PM
[2018-09-01 15:28] VITALS: BP 122/60; PULSE 87; TEMP 98.3
[2018-09-01] MEDS ORDERED: PT OWN MED DRAWER 7, Y5N ONE (16:48)
--- NOTE | 2018-09-01 16:48 | PN ---
Progress Note, Physician History of Present Illness: AWAKE, ALERT ORIENTED X 3 ANSWERS APPROPRIATELY APPEARS TO BE BACK TO BASELINE MENTATION AFEBRILE C/S NO GROWTH MRI NEGATIVE FOR ACUTE PATHOLOGY - Current Medication List Current Medications: Active Medications Acetaminophen (Tylenol -) 650 mg PO Q6HPO PRN PRN Reason: FEVER Last Admin: 08/30/18 23:46 Dose: 650 mg Albuterol/Ipratropium (Duoneb -) 1 amp NEB RQID [facility] Last Admin: 09/01/18 15:38 Dose: Not Given Guaifenesin (Robitussin -) 10 ml PO Q6H PRN PRN Reason: COUGH Levothyroxine Sodium (Synthroid -) 125 mcg PO DAILY@0600 [facility] Last Admin: 09/01/18 05:34 Dose: 125 mcg Mometasone Furoate (Asmanex 220mcg -) 2 puff IH DAILY [facility] Last Admin: 09/01/18 09:34 Dose: 2 puff Polyethylene Glycol (Miralax (For Daily Use) -) 17 gm PO BID [facility] Last Admin: 09/01/18 09:34 Dose: 17 grams Valacyclovir HCl (Valtrex -) 1,000 mg PO TID [facility] - Objective Vital Signs: Vital Signs Temperature 98.3 F 09/01/18 15:25 Pulse Rate 87 09/01/18 15:25 Respiratory Rate 20 09/01/18 15:25 Blood Pressure 122/60 09/01/18 15:25 O2 Sat by Pulse Oximetry (%) 95 08/31/18 21:00 Constitutional: Yes: No Distress Neck: Yes: Supple Cardiovascular: Yes: Regular Rate and Rhythm, S1, S2 Respiratory: Yes: CTA Bilaterally Gastrointestinal: Yes: Normal Bowel Sounds, Soft. No: Tenderness Labs: CBC, BMP 08/31/18 07:15 08/31/18 07:15 INR, PTT INR 0.95 (0.83-1.09) 08/29/18 11:13 Assessment/Plan ALTERED MENTAL STATUS ? TOXIC METABOLIC ENCEPHALOPATHY RESOLVED NO CLINICAL EVIDENCE OF MENINGITIS AFEBRILE C/S NO GROWTH D/C IV ACV VALTREX 1GM PO TID X 7D OUTPATIENT F/U
--- NOTE | 2018-09-01 16:52 | DS ---
Physical Examination Vital Signs: Vital Signs Temperature 98.3 F 09/01/18 15:25 Pulse Rate 87 09/01/18 15:25 Respiratory Rate 20 09/01/18 15:25 Blood Pressure 122/60 09/01/18 15:25 O2 Sat by Pulse Oximetry (%) 95 08/31/18 21:00 Constitutional: Yes: Calm Cardiovascular: Yes: Regular Rate and Rhythm, S1, S2 Respiratory: Yes: CTA Bilaterally Gastrointestinal: Yes: Normal Bowel Sounds, Soft Labs: CBC, BMP 08/31/18 07:15 08/31/18 07:15 Discharge Summary Reason For Visit: ALTERED MENTAL STATUS Current Active Problems Altered mental status (Acute) Cough (Acute) Electrolyte abnormality (Acute) Hypothyroid (Acute) Other Procedures: chest CTA no PE. Brain MRI negative Hospital Course: Primary Care Physician PCP: Mehdi Barrow - Admission Chief Complaint: came in for headache History of Present Illness: 73 yr old female h/o thyroid surgery came in for headache feeling tired and neck pain patient completed course of abx amoxicillin about two weeks ago for cough, patient had labs done at [facility] and wbc 2.5 no fever, no chills no nausea no vomitting in ER Lumbar puncture was attempted but unsuccessful neurology on board iv abx in hospital iv acyclovir to continue po acyclovir for total 14 days Condition: Improved - Instructions Diet, Activity, Other Instructions: acyclovir 1000mg po tid for another 10 days Referrals: Mehdi Barrow MD [Primary Care Provider] - - Home Medications Comprehensive Discharge Medication List: Ambulatory Orders Levothyroxine Sodium [Synthroid] 112 mcg PO DAILY tablet 01/07/14
[2018-09-01] MEDS ORDERED: valACYclovir HCL 500 MG TABLET (FP) PO SCH (22:00)
== END 2018-09-01 19:21 | disposition home or self-care (01) | DRG 152 ==
LOC: JER 09:55 → SUPCPDRO 09:55 → JERBED 15:04 → J5S 19:32
PROVIDERS: ADMIT Family Medicine; ATTEND Family Medicine
DX: J06.9 Acute upper respiratory infection, unspecified (principal); G93.41 Metabolic encephalopathy; E03.9 Hypothyroidism, unspecified; R41.82 Altered mental status, unspecified; E87.8 Other disorders of electrolyte and fluid balance, not elsewhere classified
CPT/HCPCS: 36415; 70450-TC; 70551-TC; 71045-TC-FY; 71275-TC; 80048; 80053; 81003; 83605; 83735; 83880; 84100; 84443; 84484; 85025; 85027; 85610; 85730; 87040; 87086; 87804; 93005; 93010; 93306-TC; 94640; 99284-25; J0131; J7030